=== PATIENT | female | born 1975 | race Two or more races ===

== ENCOUNTER 2022-07-25 16:19 | Emergency (ER) | payer BC, MEDICAID ==
[~2022-07-25] VITALS: Ht 157.5 cm; Wt 82.7 kg
[2022-07-25] MEDS ORDERED: MORPHINE SULFATE INJ 2 MG/ml SYRG IM ONE (17:15)
[2022-07-25] MEDS ORDERED: TETANUS-DIPTH-ACEL PERTUSSIS 0.5ML SYR Tdap IM ONE (17:15)
[2022-07-25 21:39] VITALS: BP 124/65
== END 2022-07-25 23:06 | disposition home or self-care (01) ==
LOC: ER 16:19
DX: S02.5XXA Fracture of tooth (traumatic), initial encounter for closed fracture (principal); S09.90XA Unspecified injury of head, initial encounter; W19.XXXA Unspecified fall, initial encounter; Y93.89 Activity, other specified; Y92.89 Other specified places as the place of occurrence of the external cause; Y99.8 Other external cause status
CPT/HCPCS: 70486; 90471; 90715; 96372; 99284; J2270

== ENCOUNTER → 2024-10-16 | Outpatient (CLI) | payer MEDICAID | END | disposition home or self-care (01) | LOC: LAB 14:26 | PROVIDERS: ATTEND Obstetrics & Gynecology | DX: N92.0 Excessive and frequent menstruation with regular cycle (principal) ==

== ENCOUNTER 2025-03-11 10:36 | Inpatient (IN) | payer MEDICAID ==
[~2025-03-11] VITALS: Ht 157.5 cm; Wt 81.2 kg
[2025-03-11 11:00] VITALS: PULSE 87; RESP 20; O2SAT 94
[2025-03-11] MEDS: IPRATROPIUM BROM 0.5 MG/2.5ML INH SOL NEB ONE ×3 (11:08→13:14)
[2025-03-11] MEDS: ALBUTEROL SULF 2.5 MG/0.5ML(0.5%) NEB SOLN NEB ONE ×3 (11:08→13:13)
--- NOTE | 2025-03-11 11:30 | ED.PDOC ---
SOB-HPI HPI Comments 49-year-old female with a history of asthma brought in by family complaining of shortness of breath progressively worsening over the past month, associated with a productive cough. Patient was seen by her primary physician today and referred to the ER due to low oxygen saturation. Patient denies chest pain, fever, nausea, vomiting, diaphoresis or edema. Chief Complaint: Shortness of Breath Time Seen by MD: 10:45 Reviewed notes: Nurses Notes, Medications, Allergies Information Source: Patient Mode of Arrival: Ambulatory Severity: Moderate Timing: Months Duration: Since onset Context: Spontaneous Onset PE Risk Factors: None History of: Asthma Prehospital treatment: None Associated Signs and Symptoms: None If cough with SOB: Non-Productive Past Medical History PAST MEDICAL HISTORY: Asthma Surgical History: Denies all surgeries OUTPATIENT PHLEBOTOMIST History: No Pertinent OUTPATIENT PHLEBOTOMIST History Family History Family History: Reviewed,noncontributory to illness, Unknown Social History Smoker: Non-Smoker Alcohol: Denies ETOH Use Drugs: Denies Drug Use Lives In: Home Constitutional: denies: chills, diaphoresis, fatigue, fever, malaise, sweats, weakness, others EENTM: denies: blurred vision, double vision, ear bleeding, ear discharge, ear drainage, ear pain, ear ringing, eye pain, eye redness, hearing loss, mouth pa in, mouth swelling, nasal discharge, nose bleeding, nose congestion, nose pain, photophobia, tearing, throat pain, throat swelling, voice changes, others Respiratory: reports: shortness of breath; denies: cough, hemoptysis, orthopnea, SOB at rest, SOB with excertion, stridor, wheezing, others Cardiovascular: denies: chest pain, dizzy spells, diaphoresis, Dyspnea on exertion, edema, irregular heart beat, left arm pain, lightheadedness, palpitat ions, PND, syncope, others Gastrointestinal: denies: abdomen distended, abdominal pain, blood streaked bow els, constipated, diarrhea, dysphagia, difficulty swallowing, hematemesis, melena, nausea, poor appetite, poor fluid intake, rectal bleeding, rectal pain, vomiting, others Genitourinary: denies: abnormal vagina bleeding, burning, dyspareunia, dysuria, flank pain, frequency, hematuria, incontinence, pain, , vagina discharge, urgency, others Neurological: denies: dizziness, fainting, headache, left sided numbness, left sided weakness, numbness, paresthesia, pre-existing deficit, right sided numbness, right sided weakness, seizure, speech problems, tingling, tremors, weakness, others Musculoskeletal: denies: back pain, gout, joint pain, joint swelling, muscle pain, muscle stiffness, neck pain, others Integumetry: denies: bruises, change in color, change in hair/nails, dryness, laceration, lesions, lumps, rash, wounds, others Allergic/Immunocompromised: denies: Difficulty Healing, Frequent Infections, Hives, Itching, others Hematologic/Lymphatic: denies: anemia, blood clots, easy bleeding, easy bruisi ng, swollen glands, others Endocrine: denies: excessive hunger, excessive sweating, excessive thirst, exce ssive urination, flushing, intolerance to cold, intolerance to heat, unexplained weight gain, unexplained weight loss, others Psychiatric: denies: anxiety, bipolar disorder, depression, hopeless, panic disorder, schizophrenia, sleepless, suicidal, others All Other Systems: Reviewed and Negative Physical Exam General Appearance: Moderate Distress HEENT: Other (Pupils and face symmetric. Moist mucous membranes.) Neck: Full Range of Motion, Normal Inspection Respiratory: Accessory Muscle Use, Respiratory Distress, Wheezing Cardiovascular: No Edema, No JVD, Regular Rate/Rhythm Breast Exam: Deferred Gastrointestinal: Non Tender, Soft Genitalia: Deferred Pelvic: Deferred Rectal: Deferred Extremities: Normal inspection, Normal range of motion, Non-tender, No pedal edema Neurologic: Alert (Oriented x4 x4), Normal Affect, Normal Mood, Other (Ambulatory) Cerebellar Function: NOT DONE Reflexes: NOT DONE Skin: Dry, Normal Color, Warm Lymphatic: NOT DONE EKG EKG : Comments Sinus rhythm, rate 84, normal RI and QRS intervals, QTC prolonged at 508, normal axis, low-voltage QRS, nonspecific T change. Was a procedure done? Was a procedure done?: No Differential Dx Differential Diagnosis: Asthma, Bronchitis, CHF, COPD, Pneumonia, Pulmonary Embolism, Respiratory Distress, URI X-Ray, Labs, Meds, VS Vital Signs Date Time Temp Pulse Resp B/P (MAP) Pulse Ox O2 Delivery O2 Flow Rate FiO2 03/11/25 18:30 98.2 88 16 97/37 (57) 96 98.2 03/11/25 18:20 84 03/11/25 16:30 98.8 90 27 89/41 (57) 98 98.8 03/11/25 16:00 96 03/11/25 14:30 88 17 97/49 (65) 97 03/11/25 13:14 18 99 Nasal Cannula* 3 32 03/11/25 13:08 95 03/11/25 11:49 20 97 Nasal Cannula* 3 32 03/11/25 11:43 99.2 91 20 141/56 (84) 94 99.2 03/11/25 11:08 18 92 Room Air* 0 21 03/11/25 11:00 87 20 94 Room Air* 0 21 03/11/25 10:50 99.2 81 16 108/64 (79) 94 99.2 Lab Test 03/11/25 12:31 03/11/25 11:29 03/11/25 11:18 Range/Units Troponin I High Sensitivity < 3 L < 3 L </=34 ng/L Urine Color Light-orange Yellow Urine Clarity Turbid H Clear Urine pH 5.5 5.0-9.0 Urine Specific [place] 1.019 1.001-1.035 Urine Protein Trace H Negative Urine Ketones 1+ H Negative Urine Blood 3+ H Negative /uL Urine Nitrite Negative Negative Urine Bilirubin Negative Negative Urine Urobilinogen Normal Negative mg/dL Urine Leukocyte Esterase 3+ Negative /uL Urine RBC 15 0 - 4 /hpf Urine Microscopic WBC 20 H 0-5 /HPF Urine Squamous Epithelial Cells Mod <5 /hpf Urine Amorphous Crystals Few None Seen /hpf Urine Bacteria Few H None Seen /hpf Urine Mucus Few None Seen Urine Glucose Normal Normal mg/dL White Blood Count 7.6 4.4-10.8 10^3/uL Red Blood Count 5.09 4.0-5.20 10^6/uL Hemoglobin 14.6 12.2-16.2 g/dL Hematocrit 42.6 36.0-46.0 % Mean Corpuscular Volume 83.8 80.0-100.0 fL Mean Corpuscular Hemoglobin 28.7 28.0-32.0 pg Mean Corpuscular Hemoglobin Concent 34.3 32.0-36.0 g/dL Red Cell Distribution Width 13.7 11.8-14.3 % Platelet Count 258 140-450 10^3/uL Mean Platelet Volume 8.2 6.9-10.8 fL Neutrophils (%) (Auto) 59.5 37.0-80.0 % Lymphocytes (%) (Auto) 31.5 10.0-50.0 % Monocytes (%) (Auto) 6.6 0.0-12.0 % Eosinophils (%) (Auto) 2.0 0.0-7.0 % Basophils (%) (Auto) 0.4 0.0-2.0 % Neutrophils # (Auto) 4.5 1.6-8.6 10 ^3/uL Lymphocytes # (Auto) 2.4 0.4-5.4 10 ^3/uL Monocytes # (Auto) 0.5 0-1.3 10 ^3/uL Eosinophils # (Auto) 0.2 0-0.8 10 ^3/uL Basophils # (Auto) 0 0-0.2 10 ^3/uL Nucleated Red Blood Cells 0.2 % Sodium Level 139 136-145 mmol/L Potassium Level 3.9 3.5-5.1 mmol/L Chloride Level 110 H 98-107 mmol/L Carbon Dioxide Level 22 20-31 mmol/L Anion Gap 7 5-15 Blood Urea Nitrogen 8 L 9-23 mg/dL Creatinine 0.81 0.550-1.02 mg/dL Glomerular Filtration Rate Calc 90 >90 mL/min BUN/Creatinine Ratio 9.9 L 10.0-20.0 Serum Glucose 97 74-106 mg/dL Calcium Level 9.9 8.7-10.4 mg/dL B-Type Natriuretic Peptide 6.30 0-100 pg/mL Beta HCG, Quantitative 0.5 L 1.5-4.2 mIU/mL Current Medications Medications (Trade) Dose Ordered Sig/Payam Route Start Time Stop Time Status Last Admin Albuterol (Ventolin Medneb) 5 mg ONCE ONCE NEB 03/11/25 11:00 03/11/25 11:01 DC 03/11/25 11:08 Ipratropium [place] (Atrovent Medneb) 0.5 mg ONCE ONCE NEB 03/11/25 11:00 03/11/25 11:01 DC 03/11/25 11:08 Dexamethasone Sodium Phosphate (Decadron Injection) 10 mg ONCE ONCE IV 03/11/25 11:00 03/11/25 11:01 DC 03/11/25 12:05 Albuterol (Ventolin Medneb) 5 mg ONCE ONCE NEB 03/11/25 11:45 03/11/25 11:46 DC 03/11/25 11:50 Ipratropium [place] (Atrovent Medneb) 0.5 mg ONCE ONCE NEB 03/11/25 11:45 03/11/25 11:46 DC 03/11/25 11:49 Magnesium Sulfate/ Dextrose 100 ml @ 100 mls/hr Q1H IV 03/11/25 11:45 03/11/25 13:44 DC 03/11/25 12:51 Albuterol (Ventolin Medneb) 5 mg ONCE ONCE NEB 03/11/25 13:00 03/11/25 13:02 DC 03/11/25 13:13 Ipratropium [place] (Atrovent Medneb) 0.5 mg ONCE ONCE NEB 03/11/25 13:00 03/11/25 13:02 DC 03/11/25 13:14 Terbutaline Sulfate (Brethine Inj) 0.25 mg ONCE ONCE SC 03/11/25 13:00 03/11/25 13:02 DC 03/11/25 15:16 Sodium Chloride 1,000 ml @ 1,000 mls/hr Q1H ONCE IV 03/11/25 13:00 03/11/25 13:59 DC 03/11/25 14:30 Sodium Chloride 1,000 ml @ 1,000 mls/hr Q1H ONCE IV 03/11/25 17:00 03/11/25 17:59 DC 03/11/25 17:23 PROCEDURE(s): CXRP - CHEST PORTABLE REASON: sob ORDER NUMBER(s): [id number], ACCESSION NUMBER(s): [id number] CHEST RADIOGRAPH Indication: sob Technique: Single frontal view of the chest was obtained Comparison: None FINDINGS: Lines and Tubes: None Lungs: No focal consolidation. Pleura: No effusion. No pneumothorax. Cardiomediastinal contours: Unremarkable Bones: No acute osseous abnormality. IMPRESSION: No acute cardiopulmonary disease. X-Ray, Labs, Meds, VS Comment 49-year-old female with a history of asthma referred by primary physician with progressive shortness of breath for the past month, productive cough and low oxygen saturation Vitals remarkable for oxygen saturation 92% on room air Exam remarkable for wheezing, respiratory distress and accessory muscle use Rhythm strip independently interpreted by me: Sinus rhythm, rate 84, no ectopy. Chest x-ray IMPRESSION: No acute cardiopulmonary disease. CBC unremarkable, metabolic panel unremarkable, BNP, troponin, hCG unremarkable, D-dimer 0.59 Patient treated with the following in the ED: Albuterol 5 mg/Atrovent 0.5 mg nebulized x3, Decadron 10 mg IV, magnesium 2 g IV, terbutaline 0.25 mg subQ, 3 L 0.9 normal saline IV bolus On re-evaluation, patient was still in respiratory distress and stated she was becoming tired. Oxygen saturation was normal on nasal cannula, however decision was made to place the patient on BiPAP. Plan is to admit the patient for respiratory support and IV antibiotics. Time of 1ST Reevaluation: 10:45 Reevaluation 1ST: Unchanged Patient Education/Counseling: Diagnosis, Treatment, Prognosis Family Education/Counseling: No Family Present Departure 1 Departure Time of Disposition: 14:30 Impression: Primary Impression: Acute respiratory failure Additional Impressions: Asthma exacerbation UTI (urinary tract infection) Disposition: ADMITTED INPATIENT Admit to: [facility] Condition: Guarded Critical Care Note Critical Care Time?: Yes (45 min-critical care time only) Critical care comment: Critical care time including multiple bedside re-evaluations, review of lab and imaging studies, and discussion of the case with the admitting provider. Patient is high risk for respiratory decompensation. Stability Stability form required: No Heart Score Heart Score: Heart Score Response (Comments) Value History N/A 0 EKG N/A 0 Age N/A 0 Risk Factors N/A 0 Troponin N/A 0 Total 0 I personally scribed for KARL CASTILLO MD ([email or web address]) on 03/11/25 at 11:30. Electronically submitted by Philipp Nguyen ([email or web address]). I personally scribed for KARL CASTILLO MD ([email or web address]) on 03/11/25 at 17:41. Electronically submitted by Philipp Nguyen ([email or web address]). KARL CASTILLO MD Mar 11, 2025 11:30
[2025-03-11 11:46] LABS: Basophils # (auto) 0 10 ^3/uL (0-0.2); Basophils % (auto) 0.4 % (0.0-2.0); Eosinophils # (auto) 0.2 10 ^3/uL (0-0.8); Hematocrit 42.6 % (36.0-46.0); Hemoglobin 14.6 g/dL (12.2-16.2); Lymphocytes # (auto) 2.4 10 ^3/uL (0.4-5.4); Lymphocytes % (auto) 31.5 % (10.0-50.0); Mean Corpuscular Hemoglobin 28.7 pg (28.0-32.0); Mean Corpuscular Hgb Conc. 34.3 g/dL (32.0-36.0); Mean Corpuscular Volume 83.8 fL (80.0-100.0); Monocytes # (auto) 0.5 10 ^3/uL (0-1.3); Monocytes % (auto) 6.6 % (0.0-12.0); Neutrophils # (auto) 4.5 10 ^3/uL (1.6-8.6); Neutrophils % (auto) 59.5 % (37.0-80.0); Nucleated Red Blood Cells % 0.2 %; Platelet Count (auto) 258 10^3/uL (140-450); Red Blood Cells 5.09 10^6/uL (4.0-5.20); Red Cell Distribution Width 13.7 % (11.8-14.3); White Blood Cell 7.6 10^3/uL (4.4-10.8)
[2025-03-11 11:55] LABS: Potassium 3.9 mmol/L (3.5-5.1); Sodium 139 mmol/L (136-145)
[2025-03-11 11:56] LABS: Anion Gap 7 (5-15); Carbon Dioxide 22 mmol/L (20-31)
[2025-03-11 11:57] LABS: Calcium 9.9 mg/dL (8.7-10.4)
[2025-03-11 12:01] LABS: BUN/Creatinine Ratio 9.9 (10.0-20.0); Glucose 97 mg/dL (74-106)
[2025-03-11 12:03] LABS: Blood Urea Nitrogen 8 mg/dL (9-23); Chloride 110 mmol/L (98-107)
[2025-03-11] MEDS: DexAMETHasone SOD PHOS 10MG/1ML VIAL INJ IV ONE (12:05)
[2025-03-11] MEDS: MAGNESIUM SULFATE 1GM/100ML 100 ML IV SCH (12:06)
--- NOTE | 2025-03-11 13:01 | DVH ---
CHEST RADIOGRAPH Indication: sob Technique: Single frontal view of the chest was obtained Comparison: None FINDINGS: Lines and Tubes: None Lungs: No focal consolidation. Pleura: No effusion. No pneumothorax. Cardiomediastinal contours: Unremarkable Bones: No acute osseous abnormality. IMPRESSION: No acute cardiopulmonary disease.
[2025-03-11] MEDS: SODIUM CHLORIDE 0.9% 1,000 ML IV ONE ×2 (14:30→17:23)
[2025-03-11] MEDS: TERBUTALINE SULFATE 1 MG/ML 1ML VIAL SC ONE (15:16)
[2025-03-11 16:00] LABS: Urine Amorphous Crystal FEW /hpf (None Seen); Urine Bacteria FEW /hpf (None Seen); Urine Blood 3+ /uL (Negative); Urine Clarity Turbid (Clear); Urine Color Light-Orange (Yellow); Urine Mucus FEW (None Seen); Urine Protein, UAD TRACE (Negative); Urine Specific Gravity 1.019 (1.001-1.035); Urine Squamous Epithelial Cell MOD /hpf (<5); Urine Urobilinogen Normal (Negative); Urine WBC 20 /HPF (0-5); Urine pH 5.5 (5.0-9.0)
--- NOTE | 2025-03-11 18:40 | ECG ---
[facility] Test Date: 2025-03-11 Test Time: 18:18:29 Pat Name: CLIVE YOON Department: ED Room: 0212 Gender: F Aircraft Ordnance Technician: YAMIL : 1975 Requested By: KARL JONES Order Number: [id number] Reading MD: Reza Alicea Measurements Intervals [place] Rate: 84 P: 60 ND: 152 QRS: 50 QRSD: 110 T: 48 QT: 429 QTc: 508 Interpretive Statements Sinus rhythm Borderline T abnormalities, anterior leads Borderline prolonged QT interval Electronically Signed On 03-12-2025 8:38:02 PDT by Reza Alicea Please click the below link to view image of tracing.
[2025-03-11 19:10] VITALS: BP 101/56; PULSE 77; O2SAT 98
[2025-03-11 19:20] VITALS: PULSE 86; RESP 20; O2SAT 94
[2025-03-11 19:41] LABS: Potassium 3.6 mmol/L (3.5-5.1); Sodium 142 mmol/L (136-145)
[2025-03-11 19:42] LABS: Anion Gap 11 (5-15)
[2025-03-11 19:43] LABS: Calcium 8.9 mg/dL (8.7-10.4)
[2025-03-11 19:52] LABS: Blood Urea Nitrogen 8 mg/dL (9-23); Carbon Dioxide 19 mmol/L (20-31); Chloride 112 mmol/L (98-107); Glucose 177 mg/dL (74-106)
[2025-03-11] MEDS: cefTRIAXone 1GM/50ML D5W 50 ML IV ONE (20:41)
[2025-03-11 21:11] VITALS: PULSE 80; O2SAT 98
[2025-03-11 21:43] VITALS: BP 99/56; PULSE 78; RESP 18; TEMP 98; O2SAT 96
--- NOTE | 2025-03-11 21:58 | DVHHP2 ---
History of Present Illness Reason for Visit: Shortness for breath History of Present Illness 49-year-old female presents for evaluation of shortness for breath. Patient with a history of asthma reports a one day history of shortness for breath not being relieved with her inhaler and nebulizer at home. Denies chest pain, fever , nausea or vomiting. She does report having a nonproductive cough. Denies any other acute symptoms. Past Medical History Asthma Past Surgical History Denies Family History Noncontributory Smoke: No ALCOHOL: none Drugs: None Lives: with Family Review of Systems Review of Systems Review of systems are currently negative otherwise dressing HPI. Allergies: Coded Allergies: No Known Drug Allergy (Verified Allergy, Unknown, 07/25/22) Diphenhydramine (Verified Adverse Reaction, Severe, 03/11/25) Medications Current Medications Medications Dose Ordered Sig/Payam Route Start Time Stop Time Status Last Admin Dose Admin Albuterol 2.5 mg Q6HPRN PRN NEB 03/11/25 19:00 Ipratropium [place] 0.5 mg Q6HPRN PRN NEB 03/11/25 19:00 Montelukast Sodium 10 mg HS PO 03/11/25 22:00 Ceftriaxone Sodium 50 ml @ 100 mls/hr DAILY@09 IV 03/12/25 09:00 Ondansetron HCl 4 mg Q4HP PRN IV 03/11/25 19:00 Acetaminophen 650 mg Q6HP PRN PO 03/11/25 19:00 Exam Vital Signs Vital Signs Date Time Temp Pulse Resp B/P (MAP) Pulse Ox O2 Delivery O2 Flow Rate FiO2 03/11/25 21:11 80 98 Facial BiPAP Mask 30 03/11/25 20:00 97.7 14 101/49 (66) 97.7 03/11/25 19:20 0 Exam Gen: 49-year-old female in mild distress Skin: Warm, dry, normal color and texture, no rash. HEENT: Normocephalic atraumatic, mucous membranes moist and pink. Neck: Cervical and supraclavicular nodes normal without enlargement, trachea is midline, thyroid gland is normal without masses. Pulmonary: Bilateral wheeze Cardiac: Regular rate and rhythm. No murmur Abdomen: Soft, nontender, nondistended, bowel sounds present all 4 quadrants, no guarding, no rigidity, no organomegaly. Extremities: No cyanosis, clubbing, no edema Neuro: Cranial nerves II through XII grossly intact, normal affect and speech, no focal motor deficits. Labs/Xrays ORDERING PHYSICIAN: KARL CASTILLO MD PROCEDURE(s): CXRP - CHEST PORTABLE REASON: sob ORDER NUMBER(s): [id number], ACCESSION NUMBER(s): [id number] CHEST RADIOGRAPH Indication: sob Technique: Single frontal view of the chest was obtained Comparison: None FINDINGS: Lines and Tubes: None Lungs: No focal consolidation. Pleura: No effusion. No pneumothorax. Cardiomediastinal contours: Unremarkable Bones: No acute osseous abnormality. IMPRESSION: No acute cardiopulmonary disease. Labs Test 03/11/25 19:13 03/11/25 12:31 03/11/25 11:29 03/11/25 11:18 Range/Units D-Dimer, Quantitative 0.59 H 0.0-0.49 mg/L FEU Sodium Level 142 136-145 mmol/L Potassium Level 3.6 3.5-5.1 mmol/L Chloride Level 112 H 98-107 mmol/L Carbon Dioxide Level 19 L 20-31 mmol/L Anion Gap 11 5-15 Blood Urea Nitrogen 8 L 9-23 mg/dL Creatinine 0.73 0.550-1.02 mg/dL Glomerular Filtration Rate Calc 102 >90 mL/min BUN/Creatinine Ratio 11.0 10.0-20.0 Serum Glucose 177 H 74-106 mg/dL Calcium Level 8.9 8.7-10.4 mg/dL Troponin I High Sensitivity < 3 L </=34 ng/L Urine Color Light-orange Yellow Urine Clarity Turbid H Clear Urine pH 5.5 5.0-9.0 Urine Specific [place] 1.019 1.001-1.035 Urine Protein Trace H Negative Urine Ketones 1+ H Negative Urine Blood 3+ H Negative /uL Urine Nitrite Negative Negative Urine Bilirubin Negative Negative Urine Urobilinogen Normal Negative mg/dL Urine Leukocyte Esterase 3+ Negative /uL Urine RBC 15 0 - 4 /hpf Urine Microscopic WBC 20 H 0-5 /HPF Urine Squamous Epithelial Cells Mod <5 /hpf Urine Amorphous Crystals Few None Seen /hpf Urine Bacteria Few H None Seen /hpf Urine Mucus Few None Seen Urine Glucose Normal Normal mg/dL White Blood Count 7.6 4.4-10.8 10^3/uL Red Blood Count 5.09 4.0-5.20 10^6/uL Hemoglobin 14.6 12.2-16.2 g/dL Hematocrit 42.6 36.0-46.0 % Mean Corpuscular Volume 83.8 80.0-100.0 fL Mean Corpuscular Hemoglobin 28.7 28.0-32.0 pg Mean Corpuscular Hemoglobin Concent 34.3 32.0-36.0 g/dL Red Cell Distribution Width 13.7 11.8-14.3 % Platelet Count 258 140-450 10^3/uL Mean Platelet Volume 8.2 6.9-10.8 fL Neutrophils (%) (Auto) 59.5 37.0-80.0 % Lymphocytes (%) (Auto) 31.5 10.0-50.0 % Monocytes (%) (Auto) 6.6 0.0-12.0 % Eosinophils (%) (Auto) 2.0 0.0-7.0 % Basophils (%) (Auto) 0.4 0.0-2.0 % Neutrophils # (Auto) 4.5 1.6-8.6 10 ^3/uL Lymphocytes # (Auto) 2.4 0.4-5.4 10 ^3/uL Monocytes # (Auto) 0.5 0-1.3 10 ^3/uL Eosinophils # (Auto) 0.2 0-0.8 10 ^3/uL Basophils # (Auto) 0 0-0.2 10 ^3/uL Nucleated Red Blood Cells 0.2 % B-Type Natriuretic Peptide 6.30 0-100 pg/mL Beta HCG, Quantitative 0.5 L 1.5-4.2 mIU/mL Assessment/Plan Assessment/Plan Assessment Acute on chronic respiratory failure Status asthmaticus Urinary tract infection Plan Admit the patient to telemetry to the hospitalist Med nebs Methylprednisone Rocephin Resume home medications Continue treatment per orders. Plan discussed with: Patient My Orders Orders - NE PIKCETT AGACNP Procedure Category Date Status Time Albuterol Medneb PHA 03/11/25 In Process (Ventolin Medneb) 19:00 Ipratropium Medneb PHA 03/11/25 In Process (Atrovent Medneb) 19:00 Montelukast Tablet PHA 03/11/25 In Process (Singulair Tablet) 22:00 Ceftriaxone 1gm/50ml PHA 03/12/25 In Process D5w (Rocephin) 09:00 Admit ADMIT 03/11/25 Transmitted 18:55 Ondansetron Hcl PHA 03/11/25 In Process (Zofran) 19:00 Condition: Stable DUSTIN 03/11/25 In Process 18:55 Acetaminophen Tablet PHA 03/11/25 In Process (Tylenol Tablet) 19:00 Bedrest With Bathroom DUSTIN 03/11/25 In Process Privileg 18:55 Regular Diet DIET 03/12/25 Transmitted Breakfast Date of Service: Mar 11, 2025 Billing Provider: NE PICKETT Common Visit Codes: [id number] INP/OBS CARE (HIGH) NE PICKETT Mar 11, 2025 21:58
[2025-03-11] MEDS: methylPREDNISolone SOD SUCC 40 MG/ML VL IV SCH (22:48)
[2025-03-11] MEDS: MONTELUKAST SODIUM 10 MG TAB PO SCH (22:48)
[2025-03-11 23:47] VITALS: BP 101/49; PULSE 98; RESP 18; O2SAT 98
[2025-03-12] VITALS (12 sets, daily range): BP systolic 90–106; BP diastolic 47–56; PULSE 53–87; RESP 16–21; TEMP 97.7–98.8; O2SAT 92–99
[2025-03-12] MEDS: cefTRIAXone 1GM/50ML D5W 50 ML IV SCH (10:17)
[2025-03-12] MEDS: ACETAMINOPHEN 325 MG TAB PO PRN (10:23)
--- NOTE | 2025-03-12 12:02 | DVHPN2 ---
Subjective Patient is seen and examined at bedside. Still had shortness for breath and wheezing. However she feels better. Reviewed: Care Plan, H&P, Labs, Medications, Previous Orders, Radiology Changes from previous H/P or p: No Changes Objective Vitals Vital Signs Date Time Temp Pulse Resp B/P (MAP) Pulse Ox O2 Delivery O2 Flow Rate FiO2 03/12/25 08:47 98.1 63 16 90/55 (67) 99 98.1 03/12/25 06:30 Nasal Cannula* 3 32 Intake/Output Intake and Output 03/12/25 07:00 Intake Total 2330 ml Balance 2330 ml Intake Oral 230 ml IV Total 2100 ml General Appearance: Alert, Oriented X3, Cooperative, No acute distress HEENT: Atraumatic, PERRLA, EOMI, Mucous membr. moist/pink Lungs: Clear to auscultation, Normal air movement Cardiovascular: Regular rate, Normal S1, Normal S2, No murmurs, Gallops, Rubs Abdomen: Normal bowel sounds, Soft, No tenderness, No hepatospenomegaly Neuro: Cranial nerves 3-12 NL Psych/Mental Status: Mental status NL Medications Current Medications Medications Dose Ordered Sig/Payam Route Start Time Stop Time Status Last Admin Dose Admin Albuterol 2.5 mg Q6HPRN PRN NEB 03/11/25 19:00 Ipratropium [place] 0.5 mg Q6HPRN PRN NEB 03/11/25 19:00 Montelukast Sodium 10 mg HS PO 03/11/25 22:00 03/11/25 22:48 10 MG Ceftriaxone Sodium 50 ml @ 100 mls/hr DAILY@09 IV 03/12/25 09:00 03/12/25 10:17 100 MLS/HR Ondansetron HCl 4 mg Q4HP PRN IV 03/11/25 19:00 Acetaminophen 650 mg Q6HP PRN PO 03/11/25 19:00 03/12/25 10:23 650 MG Methylprednisolone Sodium Succinate 40 mg BID IV 03/11/25 22:00 03/12/25 10:17 40 MG Laboratory Results Laboratory Tests 03/11/25 11:18 03/11/25 19:13 Chemistry Test 03/11/25 19:13 Calcium Level 8.9 mg/dL (8.7-10.4) Coagulation Test 03/11/25 19:13 D-Dimer, Quantitative 0.59 mg/L FEU (0.0-0.49) H Urinalysis Test 03/11/25 11:29 Urine Color Light-orange (Yellow) Urine Clarity Turbid (Clear) H Urine pH 5.5 (5.0-9.0) Urine Specific [place] 1.019 (1.001-1.035) Urine Protein Trace (Negative) H Urine Ketones 1+ (Negative) H Urine Blood 3+ /uL (Negative) H Urine Nitrite Negative (Negative) Urine Bilirubin Negative (Negative) Urine Urobilinogen Normal mg/dL (Negative) Urine Leukocyte Esterase 3+ /uL (Negative) Urine RBC 15 /hpf (0 - 4) Urine Microscopic WBC 20 /HPF (0-5) H Urine Squamous Epithelial Cells Mod /hpf (<5) Urine Amorphous Crystals Few /hpf (None Seen) Urine Bacteria Few /hpf (None Seen) H Urine Mucus Few (None Seen) Urine Glucose Normal mg/dL (Normal) Labs and/or images reviewed: Labs reviewed by me Assessment/Plan Assessment/Plan Acute on chronic respiratory failure Status asthmaticus Urinary tract infection Continuing current management. Continuing with IV antibiotic Rocephin. Continuing with nebulizer. Continuing with Solu-Medrol. This medical document was created using an electronic medical record system with [employer] direct computerized dictation system. Although this document has been carefully reviewed, there may still be some phonetic and typographical errors. These areas are purely typographical due to imperfections of the software programs, and do not reflect any compromise in the patient's medical care. Plan discussed with: Patient Date of Service: March 12, 2025 Billing Provider: ROLANDO DE LA TORRE MD Common Visit Codes: [id number] INP/OBS CARE(HIGH) ROLANDO DE LA TORRE MD March 12, 2025 12:02
[2025-03-12] MEDS: ALBUTEROL SULF 2.5 MG/0.5ML(0.5%) NEB SOLN NEB PRN (20:23)
[2025-03-12] MEDS: IPRATROPIUM BROM 0.5 MG/2.5ML INH SOL NEB PRN (20:23)
[2025-03-13] VITALS (11 sets, daily range): BP systolic 91–100; BP diastolic 49–56; PULSE 52–81; RESP 16–20; TEMP 97.8–99.1; O2SAT 93–99
[2025-03-13 10:11] LABS: Hepatitis B Surface Antigen Negative (Negative)
[2025-03-13 10:32] LABS: Hepatitis C Antibody Negative (Negative)
--- NOTE | 2025-03-13 11:46 | DVHPN2 ---
Subjective Patient is seen and examined at bedside. Still had shortness for breath and wheezing. However she feels better. Reviewed: Care Plan, H&P, Labs, Medications, Previous Orders, Radiology Changes from previous H/P or p: No Changes Objective Vitals Vital Signs Date Time Temp Pulse Resp B/P (MAP) Pulse Ox O2 Delivery O2 Flow Rate FiO2 03/13/25 09:00 97.9 54 16 93/49 (64) 98 97.9 03/13/25 07:44 Nasal Cannula 4.0 03/13/25 07:41 36 Intake/Output Intake and Output 03/13/25 07:00 Intake Total 1600 ml Balance 1600 ml Intake Oral 1550 ml IV Total 50 ml # Voids 3 General Appearance: Alert, Oriented X3, Cooperative, No acute distress HEENT: Atraumatic, PERRLA, EOMI, Mucous membr. moist/pink Lungs: Clear to auscultation, Normal air movement Cardiovascular: Regular rate, Normal S1, Normal S2, No murmurs, Gallops, Rubs Abdomen: Normal bowel sounds, Soft, No tenderness, No hepatospenomegaly Neuro: Cranial nerves 3-12 NL Psych/Mental Status: Mental status NL Medications Current Medications Medications Dose Ordered Sig/Payam Route Start Time Stop Time Status Last Admin Dose Admin Albuterol 2.5 mg Q6HPRN PRN NEB 03/11/25 19:00 03/13/25 07:44 2.5 MG Ipratropium [place] 0.5 mg Q6HPRN PRN NEB 03/11/25 19:00 03/13/25 07:44 0.5 MG Montelukast Sodium 10 mg HS PO 03/11/25 22:00 03/12/25 21:33 10 MG Ceftriaxone Sodium 50 ml @ 100 mls/hr DAILY@09 IV 03/12/25 09:00 03/13/25 10:54 100 MLS/HR Ondansetron HCl 4 mg Q4HP PRN IV 03/11/25 19:00 Acetaminophen 650 mg Q6HP PRN PO 03/11/25 19:00 03/12/25 16:24 650 MG Methylprednisolone Sodium Succinate 40 mg BID IV 03/11/25 22:00 03/13/25 10:54 40 MG Laboratory Results Laboratory Tests 03/11/25 11:18 03/11/25 19:13 Urinalysis Test 03/11/25 11:29 Urine Color Light-orange (Yellow) Urine Clarity Turbid (Clear) H Urine pH 5.5 (5.0-9.0) Urine Specific [place] 1.019 (1.001-1.035) Urine Protein Trace (Negative) H Urine Ketones 1+ (Negative) H Urine Blood 3+ /uL (Negative) H Urine Nitrite Negative (Negative) Urine Bilirubin Negative (Negative) Urine Urobilinogen Normal mg/dL (Negative) Urine Leukocyte Esterase 3+ /uL (Negative) Urine RBC 15 /hpf (0 - 4) Urine Microscopic WBC 20 /HPF (0-5) H Urine Squamous Epithelial Cells Mod /hpf (<5) Urine Amorphous Crystals Few /hpf (None Seen) Urine Bacteria Few /hpf (None Seen) H Urine Mucus Few (None Seen) Urine Glucose Normal mg/dL (Normal) Labs and/or images reviewed: Labs reviewed by me Assessment/Plan Assessment/Plan Acute on chronic respiratory failure Status asthmaticus Urinary tract infection Chest pain Continuing current management. Continuing with IV antibiotic Rocephin. Continuing with nebulizer. Continuing with Solu-Medrol. Will order 12 lead EKG.Consider cardiology consult if EKG abnormal or persitent chest pain.. This medical document was created using an electronic medical record system with [employer] direct computerized dictation system. Although this document has been carefully reviewed, there may still be some phonetic and typographical errors. These areas are purely typographical due to imperfections of the software programs, and do not reflect any compromise in the patient's medical care. Plan discussed with: Patient My Orders Orders - ROLANDO DE LA TORRE MD Procedure Category Date Status Time Stat Ekg For Chest DUSTIN 03/12/25 In Process Pain 22:09 Date of Service: March 13, 2025 Billing Provider: ROLANDO DE LA TORRE MD Common Visit Codes: [id number] INP/OBS CARE(HIGH) ROLANDO DE LA TORRE MD March 13, 2025 11:46
[2025-03-14] VITALS (14 sets, daily range): BP systolic 96–104; BP diastolic 46–68; PULSE 53–74; RESP 16–24; TEMP 97.7–98.3; O2SAT 95–100
[2025-03-14] MEDS: ONDANSETRON HCL 4 MG/2 ML VIAL IV PRN (10:03)
[2025-03-14 13:21] LABS: Basophils # (auto) 0 10 ^3/uL (0-0.2); Basophils % (auto) 0.2 % (0.0-2.0); Eosinophils # (auto) 0 10 ^3/uL (0-0.8); Hematocrit 40.3 % (36.0-46.0); Hemoglobin 13.6 g/dL (12.2-16.2); Lymphocytes # (auto) 1.5 10 ^3/uL (0.4-5.4); Lymphocytes % (auto) 11.2 % (10.0-50.0); Mean Corpuscular Hemoglobin 28.3 pg (28.0-32.0); Mean Corpuscular Hgb Conc. 33.7 g/dL (32.0-36.0); Monocytes # (auto) 0.5 10 ^3/uL (0-1.3); Monocytes % (auto) 3.5 % (0.0-12.0); Neutrophils # (auto) 11.6 10 ^3/uL (1.6-8.6); Neutrophils % (auto) 85.1 % (37.0-80.0); Platelet Count (auto) 286 10^3/uL (140-450); Red Cell Distribution Width 13.7 % (11.8-14.3); White Blood Cell 13.6 10^3/uL (4.4-10.8)
[2025-03-14] MEDS: KETOROLAC TROMETH 30 MG/ML 1ML VIAL IV ONE (13:28)
[2025-03-14 13:50] LABS: Lactic Acid w/Reflex 3.1 mmol/L (0.4-2.0)
[2025-03-14] MEDS ORDERED: AZITHROMYCIN 500MG/ 250ML 250 ML IV ONE (14:15)
--- NOTE | 2025-03-14 15:34 | DVHPN2 ---
Subjective Patient is seen and examined at bedside. Still had shortness for breath and wheezing. However she feels better. Reviewed: Care Plan, H&P, Labs, Medications, Previous Orders, Radiology Changes from previous H/P or p: No Changes Objective Vitals Vital Signs Date Time Temp Pulse Resp B/P (MAP) Pulse Ox O2 Delivery O2 Flow Rate FiO2 03/14/25 13:23 74 18 100 03/14/25 13:00 98.0 96/52 (67) 98.0 03/14/25 09:32 Nasal Cannula* 2 28 Intake/Output Intake and Output 03/14/25 07:00 Intake Total 1400 ml Balance 1400 ml Intake Oral 1400 ml # Voids 1 General Appearance: Alert, Oriented X3, Cooperative, No acute distress HEENT: Atraumatic, PERRLA, EOMI, Mucous membr. moist/pink Lungs: Clear to auscultation, Normal air movement Cardiovascular: Regular rate, Normal S1, Normal S2, No murmurs, Gallops, Rubs Abdomen: Normal bowel sounds, Soft, No tenderness, No hepatospenomegaly Neuro: Cranial nerves 3-12 NL Psych/Mental Status: Mental status NL Medications Current Medications Medications Dose Ordered Sig/Payam Route Start Time Stop Time Status Last Admin Dose Admin Albuterol 2.5 mg Q6HPRN PRN NEB 03/11/25 19:00 03/14/25 13:13 2.5 MG Ipratropium [place] 0.5 mg Q6HPRN PRN NEB 03/11/25 19:00 03/14/25 13:13 0.5 MG Montelukast Sodium 10 mg HS PO 03/11/25 22:00 03/13/25 21:25 10 MG Ceftriaxone Sodium 50 ml @ 100 mls/hr DAILY@09 IV 03/12/25 09:00 03/14/25 09:50 100 MLS/HR Ondansetron HCl 4 mg Q4HP PRN IV 03/11/25 19:00 03/14/25 10:03 4 MG Acetaminophen 650 mg Q6HP PRN PO 03/11/25 19:00 03/14/25 09:50 650 MG Methylprednisolone Sodium Succinate 40 mg BID IV 03/11/25 22:00 03/14/25 09:50 40 MG Azithromycin 250 ml @ 125 mls/hr DAILY IV 03/15/25 10:00 Future Hold Laboratory Results Laboratory Tests 03/11/25 19:13 03/14/25 13:10 Urinalysis Test 03/11/25 11:29 Urine Color Light-orange (Yellow) Urine Clarity Turbid (Clear) H Urine pH 5.5 (5.0-9.0) Urine Specific [place] 1.019 (1.001-1.035) Urine Protein Trace (Negative) H Urine Ketones 1+ (Negative) H Urine Blood 3+ /uL (Negative) H Urine Nitrite Negative (Negative) Urine Bilirubin Negative (Negative) Urine Urobilinogen Normal mg/dL (Negative) Urine Leukocyte Esterase 3+ /uL (Negative) Urine RBC 15 /hpf (0 - 4) Urine Microscopic WBC 20 /HPF (0-5) H Urine Squamous Epithelial Cells Mod /hpf (<5) Urine Amorphous Crystals Few /hpf (None Seen) Urine Bacteria Few /hpf (None Seen) H Urine Mucus Few (None Seen) Urine Glucose Normal mg/dL (Normal) Labs and/or images reviewed: Labs reviewed by me Assessment/Plan Assessment/Plan Acute on chronic respiratory failure Status asthmaticus Urinary tract infection Chest pain Continuing current management. Continuing with IV antibiotic Rocephin. Continuing with nebulizer. Continuing with Solu-Medrol. EKG normal, patient chest pain improved. Probable related to her asthma exacerbation. . This medical document was created using an electronic medical record system with [employer] direct computerized dictation system. Although this document has been carefully reviewed, there may still be some phonetic and typographical errors. These areas are purely typographical due to imperfections of the software programs, and do not reflect any compromise in the patient's medical care. Plan discussed with: Patient My Orders Orders - ROLANDO DE LA TORRE MD Procedure Category Date Status Time Azithromycin 500mg/ PHA 03/15/25 In Process 250ml (Zithromax 50 10:00 Lactic Acid W/ Reflex LAB 03/15/25 Verified Order 04:00 Complete Blood Count LAB 03/15/25 Verified 04:00 Basic Metabolic Panel LAB 03/15/25 Verified 04:00 Date of Service: March 14, 2025 Billing Provider: ROLANDO DE LA TORRE MD Common Visit Codes: [id number] INP/OBS CARE(HIGH) ROLANDO DE LA TORRE MD March 14, 2025 15:34
[2025-03-14] MEDS: SODIUM CHLORIDE 0.9% 1,000 ML IV SCH (18:30)
[2025-03-15] VITALS (10 sets, daily range): BP systolic 91–111; BP diastolic 50–60; PULSE 48–69; RESP 16–19; TEMP 98.1–98.5; O2SAT 93–99
[2025-03-15 05:53] LABS: Basophils # (auto) 0 10 ^3/uL (0-0.2); Eosinophils # (auto) 0 10 ^3/uL (0-0.8); Hematocrit 41.3 % (36.0-46.0); Lymphocytes # (auto) 1.6 10 ^3/uL (0.4-5.4); Lymphocytes % (auto) 11.3 % (10.0-50.0); Mean Corpuscular Hemoglobin 28.5 pg (28.0-32.0); Mean Corpuscular Hgb Conc. 33.8 g/dL (32.0-36.0); Mean Corpuscular Volume 84.5 fL (80.0-100.0); Monocytes # (auto) 0.6 10 ^3/uL (0-1.3); Neutrophils # (auto) 12.2 10 ^3/uL (1.6-8.6); Neutrophils % (auto) 84.7 % (37.0-80.0); Nucleated Red Blood Cells % 0.1 %; Platelet Count (auto) 286 10^3/uL (140-450); Red Blood Cells 4.89 10^6/uL (4.0-5.20); Red Cell Distribution Width 13.5 % (11.8-14.3); White Blood Cell 14.4 10^3/uL (4.4-10.8)
[2025-03-15 06:02] LABS: Calcium 9.7 mg/dL (8.7-10.4); Chloride 105 mmol/L (98-107); Potassium 4.4 mmol/L (3.5-5.1); Sodium 139 mmol/L (136-145)
[2025-03-15 06:03] LABS: Anion Gap 9 (5-15); Carbon Dioxide 25 mmol/L (20-31)
[2025-03-15 06:08] LABS: BUN/Creatinine Ratio 21.5 (10.0-20.0); Blood Urea Nitrogen 14 mg/dL (9-23)
[2025-03-15 06:09] LABS: Glucose 137 mg/dL (74-106)
[2025-03-15] MEDS ORDERED: AZITHROMYCIN 500MG/ 250ML 250 ML IV SCH (10:00)
[2025-03-15] MEDS: DOCUSATE SOD 100 MG CAP PO PRN (21:53)
--- NOTE | 2025-03-15 22:44 | DVHPN2 ---
Subjective Patient is seen and examined at bedside. Still had shortness for breath and wheezing. However she feels better. Reviewed: Care Plan, H&P, Labs, Medications, Previous Orders, Radiology Changes from previous H/P or p: No Changes Objective Vitals Vital Signs Date Time Temp Pulse Resp B/P (MAP) Pulse Ox O2 Delivery O2 Flow Rate FiO2 03/15/25 21:00 98.5 58 16 99/55 (70) 96 98.5 03/15/25 20:10 Nasal Cannula* 2 28 Intake/Output Intake and Output 03/15/25 07:00 Intake Total 1700 ml Output Total 300 ml Balance 1400 ml Intake Oral 1700 ml Output Urine Total 300 ml # Voids 2 General Appearance: Alert, Oriented X3, Cooperative, No acute distress HEENT: Atraumatic, PERRLA, EOMI, Mucous membr. moist/pink Lungs: Clear to auscultation, Normal air movement Cardiovascular: Regular rate, Normal S1, Normal S2, No murmurs, Gallops, Rubs Abdomen: Normal bowel sounds, Soft, No tenderness, No hepatospenomegaly Neuro: Cranial nerves 3-12 NL Psych/Mental Status: Mental status NL Medications Current Medications Medications Dose Ordered Sig/Payam Route Start Time Stop Time Status Last Admin Dose Admin Albuterol 2.5 mg Q6HPRN PRN NEB 03/11/25 19:00 03/14/25 13:13 2.5 MG Ipratropium [place] 0.5 mg Q6HPRN PRN NEB 03/11/25 19:00 03/14/25 13:13 0.5 MG Montelukast Sodium 10 mg HS PO 03/11/25 22:00 03/15/25 21:53 10 MG Ceftriaxone Sodium 50 ml @ 100 mls/hr DAILY@09 IV 03/12/25 09:00 03/15/25 08:54 100 MLS/HR Ondansetron HCl 4 mg Q4HP PRN IV 03/11/25 19:00 03/14/25 10:03 4 MG Acetaminophen 650 mg Q6HP PRN PO 03/11/25 19:00 03/15/25 09:14 650 MG Methylprednisolone Sodium Succinate 40 mg BID IV 03/11/25 22:00 03/15/25 21:53 40 MG Azithromycin 250 ml @ 125 mls/hr DAILY IV 03/15/25 10:00 Hold Sodium Chloride 1,000 ml @ 75 mls/hr [id number] IV 03/14/25 18:30 03/15/25 22:00 75 MLS/HR Docusate Sodium 100 mg BIDPRN PRN PO 03/15/25 21:15 03/15/25 21:53 100 MG Laboratory Results Laboratory Tests 03/15/25 05:19 Chemistry Test 03/15/25 05:19 Calcium Level 9.7 mg/dL (8.7-10.4) Urinalysis Test 03/11/25 11:29 Urine Color Light-orange (Yellow) Urine Clarity Turbid (Clear) H Urine pH 5.5 (5.0-9.0) Urine Specific [place] 1.019 (1.001-1.035) Urine Protein Trace (Negative) H Urine Ketones 1+ (Negative) H Urine Blood 3+ /uL (Negative) H Urine Nitrite Negative (Negative) Urine Bilirubin Negative (Negative) Urine Urobilinogen Normal mg/dL (Negative) Urine Leukocyte Esterase 3+ /uL (Negative) Urine RBC 15 /hpf (0 - 4) Urine Microscopic WBC 20 /HPF (0-5) H Urine Squamous Epithelial Cells Mod /hpf (<5) Urine Amorphous Crystals Few /hpf (None Seen) Urine Bacteria Few /hpf (None Seen) H Urine Mucus Few (None Seen) Urine Glucose Normal mg/dL (Normal) Labs and/or images reviewed: Labs reviewed by me Assessment/Plan Assessment/Plan Acute on chronic respiratory failure Status asthmaticus Urinary tract infection Chest pain secondary to asthma and cough. Continuing current management. Continuing with IV antibiotic Rocephin. Continuing with nebulizer. Continuing with Solu-Medrol. Discharge planning.. This medical document was created using an electronic medical record system with [employer] direct computerized dictation system. Although this document has been carefully reviewed, there may still be some phonetic and typographical errors. These areas are purely typographical due to imperfections of the software programs, and do not reflect any compromise in the patient's medical care. Plan discussed with: Patient Date of Service: March 15, 2025 Billing Provider: ROLANDO DE LA TORRE MD Common Visit Codes: [id number] INP/OBS CARE(HIGH) ROLANDO DE LA TORRE MD March 15, 2025 22:44
[2025-03-16] VITALS (7 sets, daily range): BP systolic 85–120; BP diastolic 45–60; PULSE 49–63; RESP 16–18; TEMP 36.8; O2SAT 94–98
[2025-03-16] MEDS ORDERED: AUG875T PO (12:12)
[2025-03-16] MEDS ORDERED: METH4PAK PO (12:16)
--- NOTE | 2025-03-16 12:16 | DVHDS2 ---
Discharge Summary Date of Admission Mar 11, 2025 at 18:55 Date of Discharge: March 16, 2025 Labs/Diagnostic Data: Laboratory Results Test 03/15/25 05:19 03/14/25 12:30 03/12/25 05:27 03/11/25 19:13 White Blood Count 14.4 10^3/uL (4.4-10.8) Red Blood Count 4.89 10^6/uL (4.0-5.20) Hemoglobin 14.0 g/dL (12.2-16.2) Hematocrit 41.3 % (36.0-46.0) Mean Corpuscular Volume 84.5 fL (80.0-100.0) Mean Corpuscular Hemoglobin 28.5 pg (28.0-32.0) Mean Corpuscular Hemoglobin Concent 33.8 g/dL (32.0-36.0) Red Cell Distribution Width 13.5 % (11.8-14.3) Platelet Count 286 10^3/uL (140-450) Mean Platelet Volume 8.5 fL (6.9-10.8) Neutrophils (%) (Auto) 84.7 % (37.0-80.0) Lymphocytes (%) (Auto) 11.3 % (10.0-50.0) Monocytes (%) (Auto) 4.0 % (0.0-12.0) Eosinophils (%) (Auto) 0.0 % (0.0-7.0) Basophils (%) (Auto) 0.0 % (0.0-2.0) Neutrophils # (Auto) 12.2 10 ^3/uL (1.6-8.6) Lymphocytes # (Auto) 1.6 10 ^3/uL (0.4-5.4) Monocytes # (Auto) 0.6 10 ^3/uL (0-1.3) Eosinophils # (Auto) 0 10 ^3/uL (0-0.8) Basophils # (Auto) 0 10 ^3/uL (0-0.2) Nucleated Red Blood Cells 0.1 % Sodium Level 139 mmol/L (136-145) Potassium Level 4.4 mmol/L (3.5-5.1) Chloride Level 105 mmol/L (98-107) Carbon Dioxide Level 25 mmol/L (20-31) Anion Gap 9 (5-15) Blood Urea Nitrogen 14 mg/dL (9-23) Creatinine 0.65 mg/dL (0.550-1.02) Glomerular Filtration Rate Calc 109 mL/min (>90) BUN/Creatinine Ratio 21.5 (10.0-20.0) Serum Glucose 137 mg/dL (74-106) Lactic Acid Level 1.8 mmol/L (0.4-2.0) Calcium Level 9.7 mg/dL (8.7-10.4) POC Glucose 115 mg/dl (70-106) Hepatitis B Surface Antigen Negative (Negative) Hepatitis C Antibody Negative (Negative) D-Dimer, Quantitative 0.59 mg/L FEU (0.0-0.49) Test 03/11/25 12:31 03/11/25 11:29 03/11/25 11:18 Troponin I High Sensitivity < 3 ng/L (</=34) Urine Color Light-orange (Yellow) Urine Clarity Turbid (Clear) Urine pH 5.5 (5.0-9.0) Urine Specific [place] 1.019 (1.001-1.035) Urine Protein Trace (Negative) Urine Ketones 1+ (Negative) Urine Blood 3+ /uL (Negative) Urine Nitrite Negative (Negative) Urine Bilirubin Negative (Negative) Urine Urobilinogen Normal mg/dL (Negative) Urine Leukocyte Esterase 3+ /uL (Negative) Urine RBC 15 /hpf (0 - 4) Urine Microscopic WBC 20 /HPF (0-5) Urine Squamous Epithelial Cells Mod /hpf (<5) Urine Amorphous Crystals Few /hpf (None Seen) Urine Bacteria Few /hpf (None Seen) Urine Mucus Few (None Seen) Urine Glucose Normal mg/dL (Normal) B-Type Natriuretic Peptide 6.30 pg/mL (0-100) Beta HCG, Quantitative 0.5 mIU/mL (1.5-4.2) Other Laboratory Tests 03/15/25 05:19 Brief Hx & Hospital Course: Final diagnoses: Acute hypoxic respiratory failure due to asthma exacerbation Asthma exacerbation UTI Constipation 49-year-old female who was admitted for shortness of breaths and cough was diagnosed with asthma She also had UTI She was treated here with IV antibiotics and oxygen IV steroids She is doing well now Her chest is clear Chest x-ray is clear No pneumonia Culture was negative She can be discharged home on Augmentin for 7 days and a prednisone course and resume the home medications and follow up with her primary care physician as soon as possible Condition at Discharge: Stable Final Diagnosis/Problems List Acute hypoxic respiratory failure due to asthma exacerbation Asthma exacerbation UTI Constipation Discharge Disposition: Home SNF Discharge Will this Physician continue t: No Discharge Instruct/Medications Diet: Regular Activity: No Restrictions, As Tolerated Follow Up/Referral: PCP as soon as possible Medications: Augmentin twice a day for 7 days Discharge Statement: "Patient was advised to return to the ER or call 911 if any headaches, dizziness, shortness of breath, chest pain, abdominal pain, bleeding, fevers, or worsening of medical condition. Patient was counseled about treatment plan, medications, possible side effects, patientverbalized understanding. All questions were answered to the best of my ability. This discharge took greater then 30 minutes in planning, reviewing documentation, counseling the patient, and discussing with other team members." ASSESSMENT ASSESSMENT Assessment Acute hypoxic respiratory failure due to asthma exacerbation Asthma exacerbation UTI Constipation Date of Service: March 16, 2025 Billing Provider: GURWINDER HAILE MD Common Visit Codes: [id number] DISCH DAY >30min GURWINDER HAILE MD March 16, 2025 12:16
[2025-03-16] MEDS: LACTULOSE 20Gm/30ML SOLN PO ONE (12:56)
== END 2025-03-16 15:13 | disposition home or self-care (01) | DRG 133 ==
LOC: ER 10:36 → OVERFLOW 18:55 → CENTRAL 18:59 → EAST 03-12 20:15 → TELE-EAST 03-14 15:14
PROVIDERS: ADMIT Internal Medicine Geriatric Medicine; ATTEND Internal Medicine Geriatric Medicine
PROC: 5A09357 Assistance with Respiratory Ventilation, Less than 24 Consecutive Hours, Continuous Positive Airway Pressure (ICD-10-PCS; principal; 2025-03-11)
PROC: 5A09357 Assistance with Respiratory Ventilation, Less than 24 Consecutive Hours, Continuous Positive Airway Pressure (ICD-10-PCS; 2025-03-12)
DX: J96.21 Acute and chronic respiratory failure with hypoxia (principal); J45.902 Unspecified asthma with status asthmaticus; N39.0 Urinary tract infection, site not specified; K59.00 Constipation, unspecified; Z88.8 Allergy status to other drugs, medicaments and biological substances; Z79.899 Other long term (current) drug therapy
CPT/HCPCS: 36415; 71045; 80048; 81001; 82962; 83605; 83880; 84484; 84702; 85025; 85379; 86803; 87040; 87086; 87340; 93005; 94640; 94660; G0378; J1100; J1885

== ENCOUNTER 2025-04-27 09:39 | Outpatient (CLI) | payer OTHER ==
[~2025-04-27 09:39] MED LIST: AUG875T PO; METH4PAK PO
[2025-04-27 09:58] LABS: Urine Bacteria None Seen /hpf (None Seen)
[2025-04-27 10:08] LABS: Basophils # (auto) 0 10 ^3/uL (0-0.2); Basophils % (auto) 0.5 % (0.0-2.0); Eosinophils # (auto) 0.2 10 ^3/uL (0-0.8); Eosinophils % (auto) 2.1 % (0.0-7.0); Hemoglobin 13.7 g/dL (12.2-16.2); Lymphocytes # (auto) 2.4 10 ^3/uL (0.4-5.4); Lymphocytes % (auto) 28.6 % (10.0-50.0); Mean Corpuscular Hemoglobin 28.5 pg (28.0-32.0); Mean Corpuscular Hgb Conc. 34.3 g/dL (32.0-36.0); Monocytes # (auto) 0.5 10 ^3/uL (0-1.3); Monocytes % (auto) 6.1 % (0.0-12.0); Neutrophils # (auto) 5.3 10 ^3/uL (1.6-8.6); Neutrophils % (auto) 62.7 % (37.0-80.0); Nucleated Red Blood Cells % 0.1 %; Platelet Count (auto) 226 10^3/uL (140-450); Red Blood Cells 4.82 10^6/uL (4.0-5.20); Red Cell Distribution Width 13.9 % (11.8-14.3); White Blood Cell 8.5 10^3/uL (4.4-10.8)
[2025-04-27 10:18] LABS: Urine Blood Negative /uL (Negative); Urine Clarity Clear (Clear); Urine Color Colorless (Yellow); Urine Protein, UAD Negative (Negative); Urine Specific Gravity 1.012 (1.001-1.035); Urine Squamous Epithelial Cell FEW /hpf (<5); Urine Urobilinogen Normal (Negative); Urine WBC < 1 /HPF (0-5)
[2025-04-27 10:45] LABS: Alanine Aminotransferase 14 U/L (7-40); Albumin 4.6 g/dL (3.2-4.8); Alkaline Phosphatase 67 U/L (46-116); Anion Gap 9 (5-15); Aspartate Aminotransferase 13 U/L (<34); BUN/Creatinine Ratio 16.9 (10.0-20.0); Bilirubin, Total 0.5 mg/dL (0.2-1.0); Blood Urea Nitrogen 13 mg/dL (9-23); Calcium 10.1 mg/dL (8.7-10.4); Carbon Dioxide 25 mmol/L (20-31); Chloride 106 mmol/L (98-107); Glucose 98 mg/dL (74-106); HDL Cholesterol 42 mg/dL (40-59); Potassium 4.4 mmol/L (3.5-5.1); Sodium 140 mmol/L (136-145); Total Protein 7.4 g/dL (5.7-8.2)
[2025-04-27 10:46] LABS: Cholesterol 219 mg/dL (< 200); Triglycerides 180 mg/dL (< 150)
[2025-04-27 11:08] LABS: LDL Cholesterol 156 mg/dL (< 100)
== END 2025-04-27 17:00 | disposition home or self-care (01) ==
LOC: LAB 09:39
PROVIDERS: ATTEND Nurse Practitioner Family
DX: E78.2 Mixed hyperlipidemia (principal); E55.9 Vitamin D deficiency, unspecified; R93.3 Abnormal findings on diagnostic imaging of other parts of digestive tract; Z79.899 Other long term (current) drug therapy
CPT/HCPCS: 36415; 80053; 80061; 81001; 82306; 83036; 84443; 85025

== ENCOUNTER 2025-08-11 09:10 | Outpatient (CLI) | payer OTHER ==
[2025-08-11 10:00] LABS: Urine Protein, UAD TRACE (Negative)
[2025-08-11 10:01] LABS: Hematocrit 42.3 % (36.0-46.0); Hemoglobin 14.5 g/dL (12.2-16.2); Mean Corpuscular Hemoglobin 28.4 pg (28.0-32.0); Mean Corpuscular Volume 82.8 fL (80.0-100.0); Nucleated Red Blood Cells % 0.1 %
[2025-08-11 10:25] LABS: Alanine Aminotransferase 11 U/L (7-40); Albumin 4.5 g/dL (3.2-4.8); Alkaline Phosphatase 83 U/L (46-116); Anion Gap 9 (5-15); BUN/Creatinine Ratio 12.5 (10.0-20.0); Blood Urea Nitrogen 11 mg/dL (9-23); Calcium 9.2 mg/dL (8.7-10.4); Carbon Dioxide 26 mmol/L (20-31); Chloride 106 mmol/L (98-107); Cholesterol 196 mg/dL (< 200); Glucose 94 mg/dL (74-106); Potassium 4.2 mmol/L (3.5-5.1); Sodium 141 mmol/L (136-145); Total Protein 7.7 g/dL (5.7-8.2)
[2025-08-11 10:26] LABS: Bilirubin, Total 0.7 mg/dL (0.2-1.0)
[2025-08-11 10:28] LABS: HDL Cholesterol 40 mg/dL (40-59); Triglycerides 166 mg/dL (< 150)
== END 2025-08-11 17:00 | disposition home or self-care (01) ==
LOC: LAB 09:10
PROVIDERS: ATTEND Nurse Practitioner Family
DX: E78.5 Hyperlipidemia, unspecified (principal); E55.9 Vitamin D deficiency, unspecified; R73.9 Hyperglycemia, unspecified
CPT/HCPCS: 36415; 80053; 80061; 81001; 82306; 83036; 84443; 85025

== ENCOUNTER 2025-10-06 13:22 | Outpatient (CLI) | payer OTHER ==
[2025-10-06 13:36] LABS: Hematocrit 40.2 % (36.0-46.0); Hemoglobin 13.9 g/dL (12.2-16.2); Mean Corpuscular Hemoglobin 28.9 pg (28.0-32.0); Mean Corpuscular Volume 83.5 fL (80.0-100.0); Nucleated Red Blood Cells % 0.0 %
[2025-10-06 13:58] LABS: Alanine Aminotransferase 14 U/L (7-40); Albumin 4.4 g/dL (3.2-4.8); Alkaline Phosphatase 76 U/L (46-116); Anion Gap 10 (5-15); BUN/Creatinine Ratio 18.2 (10.0-20.0); Bilirubin, Total 0.5 mg/dL (0.2-1.0); Blood Urea Nitrogen 14 mg/dL (9-23); Calcium 9.3 mg/dL (8.7-10.4); Carbon Dioxide 26 mmol/L (20-31); Chloride 105 mmol/L (98-107); Glucose 91 mg/dL (74-106); Potassium 3.7 mmol/L (3.5-5.1); Sodium 141 mmol/L (136-145); Total Protein 7.7 g/dL (5.7-8.2)
== END 2025-10-06 17:00 | disposition home or self-care (01) ==
LOC: LAB 13:22
PROVIDERS: ATTEND Nurse Practitioner Family
DX: R06.02 Shortness of breath (principal)
CPT/HCPCS: 36415; 80053; 85025